=== PATIENT | male | born 1995 | race Caucasian/White ===

== ENCOUNTER 2021-10-23 06:32 | Emergency (ER) | payer MEDICAID, SELFPAY ==
[~2021-10-23] VITALS: Ht 180.3 cm; Wt 68.0 kg
[2021-10-23 07:19] VITALS: BP_SYST 133
[2021-10-23] MEDS ORDERED: KETOROLAC TROMETHAMINE 60 MG/2 ML VIAL IM ONE (07:30)
--- NOTE | 2021-10-23 07:45 | NUR ---
RECEIVED REPORT FROM RN, PATIENT IS WITH FATHER AND ON GURNEY. PATIENT STATES HE IS HAVING SOME ABDOMINAL DISCOMFORT. MD AWARE.
[2021-10-23 09:13] LABS: BASOPHILS % (AUTO) 0.3 % (0.0-2.0); EOSINOPHILS # (AUTO) 0.1 K/uL (0.0-0.4); EOSINOPHILS % (AUTO) 1.6 % (0.0-4.0); HEMATOCRIT 44.3 % (36-54); HEMOGLOBIN 15.6 g/dL (14.0-18.0); LYMPHOCYTES # (AUTO) 1.3 K/uL (1.0-5.5); LYMPHOCYTES % (AUTO) 26.1 % (20.5-51.5); MEAN CORPUSCULAR HEMOGLOBIN 31 pg (27-31); MEAN CORPUSCULAR HGB CONC 35 % (32-36); MEAN CORPUSCULAR VOLUME 87 fL (79.0-98.0); MONOCYTES # (AUTO) 0.5 K/uL (0.0-1.0); MONOCYTES % (AUTO) 10.3 % (1.7-9.3); NEUTROPHILS % (AUTO) 61.7 % (40.0-70.0); PLATELET COUNT (AUTO) 265 K/uL (130-430); RED BLOOD CELL COUNT(AUTO) 5.12 MIL/uL (4.2-6.2); RED CELL DISTRIBUTION WIDTH 12.5 % (9.0-15.0); WHITE BLOOD COUNT (AUTO) 4.8 K/uL (4.8-10.8)
[2021-10-23] MEDS ORDERED: TRAM50TA2 PO (09:14)
[2021-10-23] MEDS ORDERED: PHEDM120 PO (09:14)
[2021-10-23] MEDS ORDERED: LOM2.5 PO (09:14)
[2021-10-23 09:24] LABS: CALCIUM 8.4 mg/dL (8.4-11.0); CREATININE 0.75 mg/dL (0.55-1.30); POTASSIUM 3.1 mmol/L (3.5-5.1)
[2021-10-23 09:35] LABS: ALBUMIN 3.6 g/dL (3.4-4.8); TOTAL BILIRUBIN 0.9 mg/dL (0.0-1.0)
--- NOTE | 2021-10-23 09:48 | NUR ---
PATIENT IS READY FOR DC. INSTRUCTIONS GIVEN TO PATIENT AND FATHER AT BEDSIDE. PATIENT IS AWARE OF POSITIVE COVID, WORK NOTE GIVEN. VITAL SIGNS STABLE.
== END 2021-10-23 09:53 | disposition home or self-care (01) ==
LOC: SED 06:32
DX: U07.1 COVID-19 (principal); A08.4 Viral intestinal infection, unspecified; Z79.899 Other long term (current) drug therapy
CPT/HCPCS: 36415; 71045; 80053; 83690; 85025; 87426; 96372; 99284; J1885